=== PATIENT | female | born 1945 | race Caucasian/White ===

== ENCOUNTER 2025-09-24 20:27 | Inpatient (IN) | payer OTHER, SELFPAY ==
[2025-09-24] VITALS (7 sets, daily range): BP systolic 92–165; BP diastolic 46–116; BMI 25.5
[2025-09-24 13:05] LABS: Hematocrit 38.5 % (37.0-47.0); Hemoglobin 12.9 g/dL (12.0-16.0); Mean Corp Hgb Conc. 33.5 g/dL (33.0-37.0); Mean Corpuscular Volume 93.0 fL (81.0-99.0); Nucleated Red Blood Cells % 0 %; Platelet Count 223 10^3/uL (130-400); Red Cell Dist. Width 12.0 % (11.5-14.5)
[2025-09-24 13:21] LABS: COVID-19 Antigen Negative (Negative)
[2025-09-24 13:30] LABS: ALT (SGPT) 99 U/L (0-35); AST (SGOT) 199 U/L (14-36); Albumin 4.2 g/dl (3.5-5.0); Alkaline Phosphatase 252 U/L (38-126); Blood Urea Nitrogen 26 mg/dl (7-17); Calcium 9.3 mg/dl (8.4-10.2); Carbon Dioxide 25 mmol/L (22-30); Chloride 102 mmol/L (98-107); Glucose 167 mg/dl (70-99); Lipase 116 U/L (23-300); Potassium 3.9 mmol/L (3.5-5.1); Sodium 137 mmol/L (135-145); Total Protein 7.1 g/dl (6.3-8.2); eGFR 51.43
[2025-09-24] MEDS: OMNIPAQUE 50 ML PO (14:30)
--- NOTE | 2025-09-24 14:31 | ED.GENMED ---
History of Present Illness
<Daniel Hui MD, Resident - Last Filed: 09/24/25 19:11>
General
Chief Complaint: Abdominal Symptoms
Time Seen by Provider: 09/24/25 13:56
History of Present Illness
History of Present Illness:
79 yo F PMH pancreatic cancer s/p Whipple in 2011, HTN, and thyroid disorder presenting w epigastric pain radiating to the back with nausea/vomiting/diarrhea.
She takes ursodiol as a home med.
These symptoms have happenned in February 2025, and she was instructed by her surgeon to take xifaxan and lomotil, which helped resolve the prior episode. However, this time, she vomiting the pills and was insisted by her family to come to the ED.
she denies any new food, low grade fever at home.
she also fell in the bathroom, denies LOC or headstrike.
denies headache, chest pain, dyspnea, focal weakness/numbness.
no uri symptoms. no sick contacts
Past History
<Daniel Hui MD, Resident - Last Filed: 09/24/25 19:11>
Past History
ED Past Medical History: Hypercholesterolemia and Other (pancreatic cancer s/p whipple)
ED Past Surgical History: Other (whipple)
Review of Systems
<Daniel Hui MD, Resident - Last Filed: 09/24/25 19:11>
Review of Systems
Constitutional: Reports fever, fatigue and chills
EENT: Reports no symptoms
Respiratory: Reports no symptoms
Cardiac: Reports no symptoms
ABD/GI: Reports abdominal pain (epigastric radiates to the back)
: Reports no symptoms
Musculoskeletal: Reports no symptoms
Neurological: Reports dizzy (lightheadedness)
Phy Exam
<Daniel Hui MD, Resident - Last Filed: 09/24/25 19:11>
Physical Exam
Physical Exam:
VS: BP 115/58; HR 103; T 99.8; O2sat 97
General: appears uncomfortable
CV: no murmurs
Pulm: CTAB
GI: hypoactive bowel sounds, diffusely tender to palpation, no rebound tenderness
MSK: no lower extremity edema
Back: no CVA tenderness
Neuro: nonfocal
Sepsis
<Daniel Hui MD, Resident - Last Filed: 09/24/25 19:11>
Sepsis Screening
Sepsis Assessment: Sepsis Ruled Out
Sepsis Screen
Sepsis Screen: Sepsis Ruled Out
Date: 09/24/25
Time: 19:11
Course
<Daniel Hui MD, Resident - Last Filed: 09/24/25 19:11>
Orders/Labs/Results
Orders:
Orders
09/24/25 12:56
COVID-19 Antigen Urgent
Source: Nasal Swab
Complete Blood Count/With Diff Urgent
Comprehensive Metabolic Panel Urgent
Lipase Urgent
INF RAPID [Influenza A+B Rapid Molecular] Urgent
CHRISTIANE Source: Nasal Swab
Specimen Description:
Date Specimen was Collected: 09/24/25
Time Specimen was Collected: 12:44
09/24/25 14:23
CT Abd/pel W Iv And Oral Contr Urgent
Comment:
Reason For Exam: upper abd pain, h/o Whipple/pancreatic Ca
Iohexol [Omnipaque] See Protocol PO NOW STA
09/24/25 14:33
Lactated Ringers [Lr] 1,000 ml IV BOLUS
Morphine Sulfate 4 mg IV NOW STA
Ondansetron Injectable [Zofran] 4 mg IV NOW STA
09/24/25 14:34
Electrocardiogram (*1) Urgent
Reason for Study: Syncope
EKG- Treatment ONCE
09/24/25 14:39
Lactate Level [Lactic Acid] Urgent
Blood Culture Urgent
CHRISTIANE Source: Blood/Venous
Specimen Description:
09/24/25 15:24
Urinalysis Reflex To Culture Urgent
Date Specimen was Collected: 09/24/25
Time Specimen was Collected: 12:44
Urine Microscopic Reflex Cult Urgent
09/24/25 17:17
Lactated Ringers [Lr] 1,000 ml IV BOLUS
09/24/25 18:07
Lactate Level [Lactic Acid] Urgent
09/24/25 20:00
Piperacillin/Tazo 2.25 Gram [Zosyn] 2.25 grams in 50 ml IV Q8H
Abnormal Lab Results
09/24/25 09/24/25 09/24/25
12:56 14:39 15:24
RBC 4.14 L 10^6/uL
(4.20-5.40)
MCH 31.2 H pg
(27.0-31.0)
Absolute Neuts (auto) 9.7 H 10^3/uL
(1.4-6.5)
Absolute Lymphs (auto) 0.2 L 10^3/uL
(1.2-3.4)
Neutrophils % 95.5 H %
(42.2-75.2)
Lymphocytes % 1.8 L %
(20.5-51.1)
BUN 26 H mg/dl
(7-17)
Creatinine 1.1 H mg/dL
(0.6-1.0)
Glucose 167 H mg/dl
(70-99)
Lactic Acid 2.5 H mmol/L
(0.7-2.0)
Total Bilirubin 3.2 H mg/dl
(0.2-1.3)
AST 199 H U/L
(14-36)
ALT 99 H U/L
(0-35)
Alkaline Phosphatase 252 H U/L
(38-126)
Urine RBC 3-6 A /HPF
(0-2)
Urine Bacteria (Reflex) Few A
(Negative)
Urine Albumin (Reflex) 1+ A
(Neg - Trace)
09/24/25
18:07
RBC
MCH
Absolute Neuts (auto)
Absolute Lymphs (auto)
Neutrophils %
Lymphocytes %
BUN
Creatinine
Glucose
Lactic Acid 2.6 H mmol/L
(0.7-2.0)
Total Bilirubin
AST
ALT
Alkaline Phosphatase
Urine RBC
Urine Bacteria (Reflex)
Urine Albumin (Reflex)
09/24/25 12:56
09/24/25 12:56
Vital Signs
Initial and Last Documented VS:
Initial Vital Signs
Temp Pulse Resp BP Pulse Ox
99.8 F 103 20 115/58 97
09/24/25 12:38 09/24/25 12:38 09/24/25 12:38 09/24/25 12:38 09/24/25 12:38
Last Documented Vital Signs
Temp Pulse Resp BP Pulse Ox
99.8 F 103 20 142/54 95
09/24/25 12:38 09/24/25 12:38 09/24/25 12:38 09/24/25 16:00 09/24/25 18:15
<Tomas Branch, DO - Last Filed: 09/24/25 18:58>
Orders/Labs/Results
Orders:
Orders
09/24/25 12:56
COVID-19 Antigen Urgent
Source: Nasal Swab
Complete Blood Count/With Diff Urgent
Comprehensive Metabolic Panel Urgent
Lipase Urgent
INF RAPID [Influenza A+B Rapid Molecular] Urgent
CHRISTIANE Source: Nasal Swab
Specimen Description:
Date Specimen was Collected: 09/24/25
Time Specimen was Collected: 12:44
09/24/25 14:23
CT Abd/pel W Iv And Oral Contr Urgent
Comment:
Reason For Exam: upper abd pain, h/o Whipple/pancreatic Ca
Iohexol [Omnipaque] See Protocol PO NOW STA
09/24/25 14:33
Lactated Ringers [Lr] 1,000 ml IV BOLUS
Morphine Sulfate 4 mg IV NOW STA
Ondansetron Injectable [Zofran] 4 mg IV NOW STA
09/24/25 14:34
Electrocardiogram (*1) Urgent
Reason for Study: Syncope
EKG- Treatment ONCE
09/24/25 14:39
Lactate Level [Lactic Acid] Urgent
Blood Culture Urgent
CHRISTIANE Source: Blood/Venous
Specimen Description:
09/24/25 15:24
Urinalysis Reflex To Culture Urgent
Date Specimen was Collected: 09/24/25
Time Specimen was Collected: 12:44
Urine Microscopic Reflex Cult Urgent
09/24/25 17:17
Lactated Ringers [Lr] 1,000 ml IV BOLUS
09/24/25 18:07
Lactate Level [Lactic Acid] Urgent
09/24/25 20:00
Piperacillin/Tazo 2.25 Gram [Zosyn] 2.25 grams in 50 ml IV Q8H
Abnormal Lab Results
09/24/25 09/24/25 09/24/25
12:56 14:39 15:24
RBC 4.14 L 10^6/uL
(4.20-5.40)
MCH 31.2 H pg
(27.0-31.0)
Absolute Neuts (auto) 9.7 H 10^3/uL
(1.4-6.5)
Absolute Lymphs (auto) 0.2 L 10^3/uL
(1.2-3.4)
Neutrophils % 95.5 H %
(42.2-75.2)
Lymphocytes % 1.8 L %
(20.5-51.1)
BUN 26 H mg/dl
(7-17)
Creatinine 1.1 H mg/dL
(0.6-1.0)
Glucose 167 H mg/dl
(70-99)
Lactic Acid 2.5 H mmol/L
(0.7-2.0)
Total Bilirubin 3.2 H mg/dl
(0.2-1.3)
AST 199 H U/L
(14-36)
ALT 99 H U/L
(0-35)
Alkaline Phosphatase 252 H U/L
(38-126)
Urine RBC 3-6 A /HPF
(0-2)
Urine Bacteria (Reflex) Few A
(Negative)
Urine Albumin (Reflex) 1+ A
(Neg - Trace)
09/24/25
18:07
RBC
MCH
Absolute Neuts (auto)
Absolute Lymphs (auto)
Neutrophils %
Lymphocytes %
BUN
Creatinine
Glucose
Lactic Acid 2.6 H mmol/L
(0.7-2.0)
Total Bilirubin
AST
ALT
Alkaline Phosphatase
Urine RBC
Urine Bacteria (Reflex)
Urine Albumin (Reflex)
09/24/25 12:56
09/24/25 12:56
Vital Signs
Initial and Last Documented VS:
Initial Vital Signs
Temp Pulse Resp BP Pulse Ox
99.8 F 103 20 115/58 97
09/24/25 12:38 09/24/25 12:38 09/24/25 12:38 09/24/25 12:38 09/24/25 12:38
Last Documented Vital Signs
Temp Pulse Resp BP Pulse Ox
99.8 F 103 20 142/54 95
09/24/25 12:38 09/24/25 12:38 09/24/25 12:38 09/24/25 16:00 09/24/25 18:15
<Daniel Hui MD, Resident - Last Filed: 09/24/25 19:11>
MDM/Problems Addressed
Differential Diagnosis Includes:
cholangitis, choledocholithasis, SBO, ileus, ischemic olitis, mesenteric ischemia (acute vs acute on chronic), gastritis/gastroenteritis, malignancy recurrence
MDM/Problems Addressed:
79 yo M PMH pancreatic cancer s/p whipple in 2011
acute onset nausea/vomiting/diarrhea, unable to tolerate PO
no recent travel or sick contacts
hx of HLD -> could point to a brewing ischemic etiology
differential is broad, but currently reassured by no peritoneal signs; she also denies blood in stool or hematemesis
she reports experiencing a fall, but denies LOC/headstrike. she denies headache and is neurologically nonfocal, will do EKG
Plan:
- CBC, CMP
- UA
- lactate
- Blood cultures
- EKG
- CT A/P with IV and oral contrast
- 1L LR ordered
Update:
- patient reports minimal pain and nausea significantly improved. is asking to drink water
- lactate was 2.5 ->2.6
- additional 1L LR ordered
- Zosyn ordered 2.25g q8h (Cr 1.1, and 79 yo) - patient denies any known drug allergies
- CT A/P showed
IMPRESSION:
- Status post Whipple procedure.
- Nonobstructive circumferential wall thickening involving the gastrojejunostomy.
- 3 small cystic structures at the expected location of the pancreaticojejunostomy, with adjacent and surrounding mild soft tissue infiltration. This could represent a segment of small bowel with segmental stenoses and secondary inflammation.
However, other possible consideration may include small inflamed pseudocysts. Residual or recurrent cystic neoplasm cannot be entirely excluded.
- Right upper quadrant ovoid fluid structure could represent distention of a segment of the common bile duct, diverticulum, or possibly cystic duct remnant. The possibility of a biliary stricture cannot be entirely excluded, though felt to be less
likely given the presence of pneumobilia within the intrahepatic ductal elements. Abscess cannot be entirely excluded, though felt to be less likely.
- Mild diffuse edema in the jason hepatis.
- Nonspecific 7 mm lymph node at the level of the diaphragm posterior to the inferior vena cava. Cannot exclude small metastatic lymph node.
- Direct comparison with any prior examination is advised.
- No bowel structure. No obstructive uropathy. Minor diverticulosis without acute diverticulitis.
- Tiny foci of gas within urinary bladder. Likely iatrogenic, though clinical correlation recommended.
Dispo: will admit to hospitalist for duodenitis, pneumobilia
After discussion with Dr. Branch, patient is allowed to drink water, CLD is appropriate for now
<Daniel Hui MD, Resident - Last Filed: 09/24/25 19:11>
*Pulse Oximetry
SaO2: 97
Oxygen Mode of Delivery: Room air
Patient hypoxic: no
*Critical Care Note
Total Time (30-74mins, 75-104mins- exclusive of procedures): Not Applicable
ED Attending Note
<Daniel Hui MD, Resident - Last Filed: 09/24/25 19:11>
-
Portions of this chart may have been created with voice recognition software.� Occasional wrong word or��sound alike� substitutions may have occurred due to the inherent limitations of voice recognition software.
<Tomas Branch, DO - Last Filed: 09/24/25 18:58>
ED Attending Note
Patient seen and examined by attending physician: Yes
I performed a history and physical exam of patient and discussed management with resident, I reviewed resident's note and agree with documented findings and plan of care.: Yes
ED Attending Note:
Note:
CHIEF COMPLAINT(S)
Upper abdominal pain after eating.
HISTORY OF PRESENT ILLNESS
The patient is a 79-year-old female with a history of pancreatic cancer treated with a Whipple procedure in 2011. She reports experiencing upper abdominal pain that began last night after eating. She is mindful of her diet and does not believe the
pain is related to food poisoning as no one else became ill.
The patient has a history of episodes related to bile duct issues following her Whipple procedure, which included removal of the gallbladder, part of the pancreas, and bile duct. She has experienced episodes of 'sludge' in the common bile duct
previously, for which she has been prescribed Ciprofloxacin and Rifaximin. She was instructed to initiate Ciprofloxacin if symptoms arise due to concerns of potential biliary infection, as her previous surgeon indicated the urgency based on past
patient experiences.
The patient attempted to take her medications this morning but vomited shortly after, rendering them ineffective. Her last similar episode occurred in February and was resolved at home. She usually finds relief within several hours after taking her
medications and resting, but this time symptoms persisted.
Her abdomen is notably tender with moderate upper abdominal tenderness reported. There is no rebound tenderness or guarding noted. The lack of bowel sounds is concerning for possible obstruction.
PAST MEDICAL AND SURIGICAL HISTORY
The patient previously underwent a Whipple procedure for pancreatic cancer in 2011, which involved the removal of the gallbladder, half of the pancreas, part of the bile duct, and a portion of the small intestine.
CHRONIC MEDICAL CONDITIONS SIGNIFICANTLY AFFECTING CARE
The patient has a history of pancreatic cancer treated with a Whipple procedure.
MEDICATIONS
Currently prescribed Ciprofloxacin and Rifaximin for potential biliary issues but was unable to retain the medication due to vomiting.
REVIEW OF SYSTEMS
- Gastrointestinal: Reports of vomiting following medication ingestion, moderate upper abdominal pain, and tenderness. Distended abdomen with no bowel sounds noted.
PHYSICAL EXAM
General: Alert, no acute distress.
Skin: Warm, dry.
Head: Normocephalic, atraumatic.
Neck: Supple, trachea midline.
Eye, Ears, Nose, Mouth and Throat: Oral mucosa moist.
Cardiovascular: Normal peripheral perfusion, No edema.
Respiratory: Respirations are non-labored.
Gastrointestinal: Abdomen is slightly distended, no bowel sounds, moderate upper abdominal tenderness, no rebound tenderness, no guarding noted.
Back: Normal range of motion, Normal alignment.
Musculoskeletal: Normal range of motion, normal strength.
Neurological: Alert and oriented to person, place, time, and situation, No focal neurological deficit observed.
Psychiatric: Cooperative, appropriate mood & affect.
PLAN
The plan includes obtaining an abdominal CT scan to evaluate potential causes for her symptoms, such as biliary duct obstruction or bowel obstruction. Instructed patient to report any increase in pain or nausea.
DIFFERENTIAL DIAGNOSIS
The Differential Diagnosis includes, in no particular order and is not limited to:
1. Biliary tree obstruction
2. Biliary sludge
3. Intestinal obstruction
4. Pancreatitis
5. Gastric outlet obstruction
6. Peptic ulcer disease
7. Gastroenteritis
8. Medication side effects
9. Gastric or duodenal ulcer
10. Cholecystitis
Disposition:
SUMMARY OF ENCOUNTER
The patient is a 79-year-old female with a history of pancreatic cancer treated with a Whipple procedure, who presented with upper abdominal pain. Similar symptoms have occurred in the past but sometimes resolve without intervention. The patient was
assessed in the emergency department where labs and a CT scan were conducted. The CBC was grossly unremarkable, with 95% neutrophils. CMP showed a lactic acid level of 2.5 mmol/L, elevated AST, ALT, and alkaline phosphatase at 252 IU/L. The
urinalysis was grossly unremarkable. The CT scan demonstrated some soft tissue infiltration surrounding and adjacent to the pancreaticojejunostomy with small cystic structures, possibly indicating small bowel segmental stenosis with secondary
inflammation or small inflamed pseudocysts. The patient reported feeling symptomatically better. She was managed with intravenous fluids, remained hemodynamically stable, and improved symptomatically. Due to her new findings on the CT scan, she was
covered with a dose of antibiotics and was admitted for further management.
DISPOSITION
Admit.
ASSESSMENT
The assessment indicated the likelihood of a biliary obstruction or possible inflammation secondary to the patient�s post-Whipple anatomy. Potential concerns include small inflamed pseudocysts or segmental stenosis.
EMERGENCY TREATMENTS ADMINISTERED
One dose of antibiotics was administered to address potential inflammation or infectious processes indicated by CT findings.
PLAN
The plan includes admitting the patient for further management, keeping the patient on clear fluids, providing IV fluids, and monitoring her condition due to findings of soft tissue infiltration and cystic structures near the pancreaticojejunostomy.
INDEPENDENT REVIEW OF LABS AND INTERPRETATION OF TESTS
- My independent review of the CBC shows it is grossly unremarkable but with neutrophilia at 95%.
- My independent review of the CMP indicates elevated lactic acid at 2.5 mmol/L, and elevated AST, ALT, and alkaline phosphatase at 252 IU/L.
- My independent review of urinalysis confirms it is grossly unremarkable.
- My independent interpretation of the CT scan indicates soft tissue infiltration near the pancreaticojejunostomy with small cystic structures suggestive of possible small inflamed pseudocysts or segmental stenosis due to inflammation.
MEDICAL DECISION MAKING
-Complexity of Data Reviewed: Chronic conditions affecting care [history of pancreatic cancer, biliary duct issues, Whipple procedure] Differential Diagnosis: Biliary tree obstruction, Biliary sludge, Intestinal obstruction, Pancreatitis, Gastric
outlet obstruction, Peptic ulcer disease, Gastroenteritis, Medication side effects, Gastric or duodenal ulcer, Cholecystitis.
-Data:
- Category 1:
- Lab tests: CBC, CMP, urinalysis reviewed and independently interpreted.
- Radiology: CT scan independently interpreted.
-Risk:
- Due to the complexity and risk associated with the patients presenting complaint, history, and CT findings, admission and inpatient management were considered necessary.
Discharge Plan
Departure
Patient Disposition: Admit
Date of Disposition: 09/24/25
Time of Disposition: 19:10
Admit to: Telemetry
Presentation/result/management discussed w/ accepting MD/DO: Hospitalist
Condition: Fair
Discharge Problem:
Duodenitis, Pneumobilia
Referrals:
NONE,* [Family Provider, Internal Medicine]
Interventions
Interventions:
*General Assessment Last Done: 09/24/25 14:32
*Neglect/Abuse Screening Last Done: 09/24/25 12:38
*ED COVID-19 Vaccine History Last Done: 09/24/25 14:32
*ED Influenza Vaccine History Last Done: 09/24/25 14:32
[facility] Risk Assessment Tool Last Done: 09/24/25 14:32
*Risk Screen - Suicide (C-SSRS) Last Done: 09/24/25 12:38
IO-Lgapen-Emalxizzas Assessment Last Done: 09/24/25 14:32
Discharge Date and Time
Print Language: CHINESE
[2025-09-24] MEDS: MORPHINE SULFATE 4 MG IV (14:40)
[2025-09-24] MEDS: ZOFRAN 4 MG IV (14:41)
[2025-09-24] MEDS: LR 1000 IV ×3 (14:42→22:03)
[2025-09-24 15:37] LABS: Urine Character Clear (Clear)
[2025-09-24 15:52] LABS: Urine Squamous Cell 16-20 /LPF (Few)
[2025-09-24] MEDS: ZOSYN 50 IV (19:42)
--- NOTE | 2025-09-24 20:00 | HPS.HSE ---
Family Physician
-
Family Physician: * NONE
Chief Complaint
-
Abd Pain, N/V
History of Present Illness
Patient is a 79y F with PMH significant for pancreatic cancer s/p Whipple (2011) who presents to ED complaining of abdominal pain and N/V/D. Patient states that she developed a similar episode of abdominal pain with N/V a few years after her
initial surgery. She was seen by her Surgeon who advised that this was likely due to biliary sludge and she was treated with abx with improvement in her symptoms. She has since kept a supple of ciprofloxacin on hand which she takes at the first
sign of such symptoms. She reports that she has had 3-4 episodes since that time.
Patient notes that she had some epigastric discomfort and loose stools last PM. She initially felt that this was due to eating rich foods over the holidays.
This AM she had more significant pain and developed N/V. She took a first dose of Cipro; however, she had an episode of emesis immediately thereafter.
Patient presented to the ED for further evaluation and treatment.
Patient is visiting family in the area. She does not have a current list of her medications.
Medical History
Past Medical History
Past Medical History: Reports Other
Additional Past Medical History:
Pancreatic Cancer
Hypothyroidism
IBS
Past Surgical History: Reports Other
Additional Past Surgical History:
Whipple (2011)
T&A
GABRIELLE / BSO
Breast Reduction
L Thumb Surgery
Social History
Tobacco: Non-smoker
Alcohol: Occasional
Drug: None
Family History
Family History: Not pertinent
Allergies / Home Medications
Allergies reflects when Allergies were last updated in [employer].
Home Medications with original date entered in [employer]
Allergy/Medication List:
Allergies
Allergy/AdvReac Type Severity Reaction Status Date / Time
No Known Allergies Allergy Unverified 12/26/25 12:38
Home Medications
Unobtainable 09/24/25
If medication reconciliation has not been performed, why?: Medication List N/A
Review of Systems
-
History Source: Patient
A 12 point ROS was completed and negative except as noted: Yes
Constitutional: Reports Fatigue; Denies Fever or Chills
EENT: Denies Sore Throat
Respiratory: Denies Cough or Trouble Breathing
Cardiac: Denies Chest Pain or Palpitations
Abdomen/GI: Reports Abdominal Pain, Nausea, Vomiting and Diarrhea; Denies Bloody Stools or Black Stools
: Denies Dysuria or Frequency
Musculoskeletal: Denies Joint Pain or Edema
Neurological: Denies Dizzy or Headache
Psych: Denies Depression or Anxiety
Physical Exam
Vital Signs
Vital Signs
Temp Pulse Resp BP Pulse Ox
99.8 F 103 20 142/54 95
09/24/25 12:38 09/24/25 12:38 09/24/25 12:38 09/24/25 16:00 09/24/25 19:30
Physical Exam
General: Other (79y F in no acute distress.)
HEENT: Other (Dry MM.)
Respiratory: Clear; No Wheezes, Rales or Rhonchi
Cardiac: S1/S2 and Regular Rhythm; No Murmur
GI: Soft, Non Distended, Normal Bowel Sounds and Other (Pos epigastric tenderness without rebound. Pos BS.)
Musculoskeletal: No Clubbing, No Cyanosis and No Edema
Neuro: AO x 3
Laboratory Results
-
09/24/25 12:56
09/24/25 12:56
Laboratory Results
Lactic Acid 2.6 mmol/L (0.7-2.0) H 09/24/25 18:07
Total Bilirubin 3.2 mg/dl (0.2-1.3) H 09/24/25 12:56
AST 199 U/L (14-36) H 09/24/25 12:56
ALT 99 U/L (0-35) H 09/24/25 12:56
Alkaline Phosphatase 252 U/L (38-126) H 09/24/25 12:56
Lipase 116 U/L (23-300) 09/24/25 12:56
Impression/Plan
-
A/P: Patient is a 79y F with PMH significant for pancreatic cancer s/p Whipple (2011) who presents to ED complaining of abdominal pain and N/V/D.
Biliary Sepsis
s/p Whipple
History of Pancreatic Cancer
- Admit for further evaluation and treatment.
- Patient presents with GI symptoms and evidence of organ dysfunction in the form of elevated lactate and bilirubin.
- Imaging shows post-op changes from prior Whipple. Note 3 small cysts at pancreaticojejunostomy site and associated inflammation.
- Also note cystic structure in RUQ which likely represents dilated bile duct - ? stricture v sludge v other.
- IV abx with Zosyn for now.
- IVF / supportive care with pain control, antiemetics, etc.
- Continue usual ursodiol.
- GI evaluation for additional recommendations.
- Follow for clinical improvement.
Hypothyroidism
Pancreatic Insufficiency
IBS
- Reconcile other regular medications in AM and resume those that are appropriate.
DVT Prophylaxis: Lovenox
Code Status: Full
[2025-09-24] MEDS: URSO 500 MG PO (22:04)
[2025-09-25] MEDS: ZOSYN 50 IV ×4 (02:27→19:51)
[2025-09-25 06:00] VITALS: BMI 25.4
[2025-09-25 07:30] VITALS: BP 100/49
[2025-09-25 08:16] LABS: ALT (SGPT) 72 U/L (0-35); AST (SGOT) 90 U/L (14-36); Albumin 3.1 g/dl (3.5-5.0); Alkaline Phosphatase 137 U/L (38-126); Blood Urea Nitrogen 26 mg/dl (7-17); Calcium 8.4 mg/dl (8.4-10.2); Carbon Dioxide 28 mmol/L (22-30); Chloride 101 mmol/L (98-107); Estimated Creatinine Clearance 33 ml/min; Glucose 91 mg/dl (70-99); Potassium 3.8 mmol/L (3.5-5.1); Sodium 134 mmol/L (135-145); Total Protein 5.8 g/dl (6.3-8.2); eGFR 46.33
[2025-09-25 08:31] LABS: Hematocrit 31.1 % (37.0-47.0); Hemoglobin 10.4 g/dL (12.0-16.0); Mean Corp Hgb Conc. 33.4 g/dL (33.0-37.0); Mean Corpuscular Volume 93.1 fL (81.0-99.0); Platelet Count 152 10^3/uL (130-400); Red Cell Dist. Width 12.2 % (11.5-14.5)
[2025-09-25] MEDS: URSO 500 MG PO ×2 (08:34→19:51)
[2025-09-25] MEDS: PROTONIX 40 MG PO (08:34)
--- NOTE | 2025-09-25 09:48 | W.PN.HOSP.TC ---
Today's Communication/Plan
-
.
Assessment / Plan
Assessment / Plan
Physical Exam
General: Other (79y F in no acute distress.)
HEENT: no deformities.
Respiratory: Clear; No Wheezes, Rales or Rhonchi
Cardiac: S1/S2 and Regular Rhythm; No Murmur
GI: Soft, Non Distended, Normal Bowel Sounds , no tenderness.
Musculoskeletal: No Clubbing, No Cyanosis and No Edema
Neuro: AO x 3, non focal, followed commands
Psych: calm.
Patient is a 79y F with PMH significant for pancreatic cancer s/p Whipple (2011) who presents to ED complaining of abdominal pain and N/V/D.
Biliary Sepsis
s/p Whipple
History of Pancreatic Cancer
She reports feeling better. She is receiving IV fluid, IV antibiotics
She has had recurrent episodes in the past
Discussed with GI , Might need to transfer to tertiary care center, GI doctor will see the patient and decide
Appreciate GI, ID help
Added IV Zofran/IV Dilaudid as needed
Hypothyroidism
Pancreatic Insufficiency
IBS
- Reconcile other regular medications in AM and resume those that are appropriate.
Hyponatremia
Acute kidney injury, we do not know the baseline but seems rising creatinine
Lactic acidosis, resolved
DVT Prophylaxis: Lovenox
Code Status: Full
Total time spent to see the patient, examine the patient, review data and lab results, discuss treatment plan with patient, nursing staff around 55 minutes
Anticipated Discharge: > 48 hours
Subjective/Interval History
-
Date of Service: September 25, 2025
No chest pain
No sob
No fevers
Mild abdominal discomfort
Objective Data
-
Labs:
Laboratory Results
09/25/25
07:19
WBC 18.2 H
Hgb 10.4 L
Hct 31.1 L
Plt Count 152 D
Sodium 134 L
Potassium 3.8
Chloride 101
Carbon Dioxide 28
BUN 26 H
Creatinine 1.2 H
Glucose 91
Calcium 8.4
Total Bilirubin 4.2 H
AST 90 H
ALT 72 H
Alkaline Phosphatase 137 H
Vital Signs:
Vital Signs
Temp Pulse Resp BP Pulse Ox
97.6 F 73 16 100/49 93
09/25/25 07:30 09/25/25 07:30 09/25/25 07:30 09/25/25 07:30 09/25/25 07:30
--- NOTE | 2025-09-25 10:24 | CON.ID ---
Consultation
-
Date/Time Consultation Requested: 09/25/25 7:02
Date/Time Consultation Performed: 09/25/25 10:24
Requesting Provider: Dr Dillard
Performing Provider: Dr Mccray
Reason for Consultation: Sepsis
Chief Complaint / Past History
Chief Complaint
abdominal pain, nausea, vomiting
History of Present Illness
Ms Castro is a 79 year old female with history of pancreatic cancer s/p whipple 2011 who presented here last night for nausea, vomiting, diarrhea, epigastic pain, loose stools. She has a history of biliary sludge with similar symptoms 3-4 times which
resolve promptly with the ciprofloxacin. She has oral ciprofloxacin prescribed which she keeps on hand and starts at the first sign of symptoms. She took her first dose of the ciprofloxacin but have emesis right away and she presented to the ER
for assessment. She is visiting the area.
Since arrival here she has been afebrile, overall stable, wbc initially 10 today 18.2, hgb 10.4, plt 152,L shift was initially present not repeated, lactic acid initially 2.5 now resolved, cr 1.2 unkown baseline, t bili 4.2, d bili 3.3, ast peaked
at 199 now 90, alt 99 now 72, alk phos 252 now 137, ua no pyuria, covid ag negative, CT a/p with IV and oral contrast: 'Nonobstructive circumferential wall thickening involving the gastrojejunostomy.3 small cystic structures at the expected location
of the pancreaticojejunostomy, with adjacent and surrounding mild soft tissue infiltration. This could represent a segment of small bowel with segmental stenoses and secondary inflammation. However, other possible consideration may include small
inflamed pseudocysts. Residual or recurrent cystic neoplasm cannot be entirely excluded. Right upper quadrant ovoid fluid structure could represent distention of a segment of the common bile duct, diverticulum, or possibly cystic duct remnant. The
possibility of a biliary stricture cannot be entirely excluded, though felt to be less likely given the presence of pneumobilia within the intrahepatic ductal elements. Abscess cannot be entirely excluded, though felt to be less likely.'
Past History
Additional Past Medical History:
Pancreatic Cancer
Hypothyroidism
IBS
Additional Past Surgical History:
Whipple (2011)
T&A
GABRIELLE / BSO
Breast Reduction
L Thumb Surgery
Allergy History:
No Known Allergies Allergy (Unverified 09/24/25 12:38)
Medications Reviewed: Yes
Social History
Tobacco: Non-Smoker
Alcohol: Occasional
Drug: None
Family History
Family History: Not Pertinent
Review of Systems
Review of Systems
Constitutional: Reports Fatigue; Denies Fever or Chills
EENT: Denies Sore Throat
Respiratory: Denies Cough or Trouble Breathing
Cardiac: Denies Chest Pain or Palpitations
Abdomen/GI: Reports Abdominal Pain, Nausea, Vomiting and Diarrhea; Denies Bloody Stools or Black Stools
: Denies Dysuria or Frequency
Musculoskeletal: Denies Joint Pain or Edema
Neurological: Denies Dizzy or Headache
Psych: Denies Depression or Anxiety
Vital Signs
Temp Pulse Resp BP Pulse Ox
97.6 F 73 16 100/49 93
09/25/25 07:30 09/25/25 07:30 09/25/25 07:30 09/25/25 07:30 09/25/25 07:30
Physical Exam
Physical Exam
Constitutional: No Acute Distress
Cardiovascular: Regular Rate and S1/S2; Negative Murmur or Rub
Pulmonary: Clear and Symmetric; Negative Wheezes, Rales or Rhonchi
Gastrointestinal: Soft, Tender, Non Distended and Normal Bowel Sounds
Skin: Warm and Dry; Negative Rash or Jaundice
Lab / Diagnostic Study Results
09/25/25 07:19
09/25/25 07:19
Abs Immat Gran (auto) 0.0 10^3/uL (0-0.05) 09/24/25 12:56
Absolute Neuts (auto) 9.7 10^3/uL (1.4-6.5) H 09/24/25 12:56
Absolute Lymphs (auto) 0.2 10^3/uL (1.2-3.4) L 09/24/25 12:56
Absolute Monos (auto) 0.2 10^3/uL (0.1-0.6) 09/24/25 12:56
Absolute Basos (auto) 0.1 10^3/uL (0-0.2) 09/24/25 12:56
Immature Gran % 0.3 % (0-0.5) 09/24/25 12:56
Neutrophils % 95.5 % (42.2-75.2) H 09/24/25 12:56
Lymphocytes % 1.8 % (20.5-51.1) L 09/24/25 12:56
Monocytes % 1.9 % (1.7-9.3) 09/24/25 12:56
Eosinophils % 0.0 % (0-6) 09/24/25 12:56
Basophils % 0.5 % (0-2) 09/24/25 12:56
Lactic Acid Cancelled 09/25/25 03:07
Ur Squamous Epith Cells 16-20 /LPF (Few) 09/24/25 15:24
Microbiology Results
Micro:
09/24/25 14:39 Blood Culture - Pending
Blood/Venous
09/24/25 12:56 Influenza Types A & B (ADA) - Final
Nasal Swab Negative for Influenza A & B, NAAT
Negative results must be combined with clinical observations
and patient history.
Nucleic Acid Amplification test (NAAT)performed on the
[employer] platform.
Assessment / Plan
Cholangitis
Sepsis
h/o whipple 2012, pancreatic cancer
- blood cultures x2 send second set
- CT reviewed - inflamed pseudocysts vs small bowel; less likely biliary stricture/abscess - would like to discuss these findings with her GI in [place] to better understand if they are chronic or new findings, would plan to call them saturday
- continue zosyn for present - follow clinically
- she has consistently been using ciprofloxacin for about 4 infections in the last two years, would favor cycling through cipro, augmentin and bactrim with switch every 3-4 episodes rather than always using ciprofloxacin in an effort to avoid
developing resistance
- appreciate GI input
[2025-09-25] MEDS: TYLENOL 650 MG PO (10:40)
[2025-09-25] MEDS: LR 1000 IV (11:33)
[2025-09-25] MEDS: FLUSH (NSS) 1 FLUSH IV ×2 (11:34→14:33)
--- NOTE | 2025-09-25 12:13 | CM ---
Patient seen bedside w/ daughter, Celsa. Initial assessment completed. Patient is a 79y F with PMH significant for pancreatic cancer s/p Sergipple (2011) who presents to ED complaining of abdominal pain and N/V/D.
Patient and spouse visiting and staying w/ their daughter Celsa. Patient and spouse resides in [place]. Celsa is located in [place], [facility], 1 step to enter. Patient has bedroom on second floor of the home. Independent w/ ambulation,
no device required. Independent w/ ADLs and personal care. No SNF/HC hx.
PCP: Provider in [place]
Pharmacy: [facility] (while visiting)
Updated admissions to add patient's spouse as a contact as requested
Plan: Home w/ daughter when medically stable
--- NOTE | 2025-09-25 14:28 | CON.GI ---
Consultation
-
Date/Time Consultation Requested: 09/25/2025
Date/Time Consultation Performed: 09/25/2025
Requesting Provider: Hospitalist
Performing Provider: Kristal ROSS
Reason for Consultation: sepsis / elevated LFT
Medical History
Chief Complaint / HPI
Chief Complaint: Abdominal pain/nausea/vomiting
History of Present Illness:
79-year-old female who lives in [place] with prior history of pancreatic cancer status post Whipple's in 2011 admitted to ED with severe epigastric abdominal pain associated with nausea/vomiting/loose stool/chills. Temperature at home was
100.1 as per daughter. Patient has been following up with GI in [place] since her surgery and had few episodes of biliary sepsis requiring oral antibiotics. Last episode this summer. She was advised to carry ciprofloxacin by her GI. No
prior hospital admission.
Past Medical History
Past Medical History: Other (Pancreatic Cancer Hypothyroidism IBS)
Past Surgical History: Other (Whipple (2011) T&A GABRIELLE / BSO Breast Reduction L Thumb Surgery)
Social History
Alcohol: Occasional
Drug: None
Allergies / Home Medications
Allergy/AdvReac Type Severity Reaction Status Date / Time
No Known Allergies Allergy Unverified 09/24/25 12:38
�Medication �Instructions �Recorded
Unobtainable 09/24/25
Review of Systems
Vital Signs
Temp Pulse Resp BP Pulse Ox
97.6 F 73 16 100/49 93
09/25/25 07:30 09/25/25 07:30 09/25/25 07:30 09/25/25 07:30 09/25/25 07:30
Physical Exam
Exam
General: Comfortable
Respiratory: Clear
Cardiac: S1/S2
GI: Soft, Non Distended and Tender (Mild epigastric tenderness)
Neuro: AO x 3
Results
WBC 18.2 10^3/uL (4.8-10.8) H 09/25/25 07:19
Hgb 10.4 g/dL (12.0-16.0) L 09/25/25 07:19
Hct 31.1 % (37.0-47.0) L 09/25/25 07:19
MCV 93.1 fL (81.0-99.0) 09/25/25 07:19
Plt Count 152 10^3/uL (130-400) D 09/25/25 07:19
Absolute Neuts (auto) 9.7 10^3/uL (1.4-6.5) H 09/24/25 12:56
Sodium 134 mmol/L (135-145) L 09/25/25 07:19
Potassium 3.8 mmol/L (3.5-5.1) 09/25/25 07:19
Chloride 101 mmol/L (98-107) 09/25/25 07:19
Carbon Dioxide 28 mmol/L (22-30) 09/25/25 07:19
BUN 26 mg/dl (7-17) H 09/25/25 07:19
Creatinine 1.2 mg/dL (0.6-1.0) H 09/25/25 07:19
Calcium 8.4 mg/dl (8.4-10.2) 09/25/25 07:19
Total Bilirubin 4.2 mg/dl (0.2-1.3) H 09/25/25 07:19
AST 90 U/L (14-36) H 09/25/25 07:19
ALT 72 U/L (0-35) H 09/25/25 07:19
Alkaline Phosphatase 137 U/L (38-126) H 09/25/25 07:19
Lipase 116 U/L (23-300) 09/24/25 12:56
Diagnostic Image Results:
CT abd/pel 09/24/2025 with cont
IMPRESSION:
Status post Whipple procedure.
Nonobstructive circumferential wall thickening involving the gastrojejunostomy.
3 small cystic structures at the expected location of the pancreaticojejunostomy, with adjacent and surrounding mild soft tissue infiltration. This could represent a segment of small bowel with segmental stenoses and secondary inflammation. However,
other possible consideration may include small inflamed pseudocysts. Residual or recurrent cystic neoplasm cannot be entirely excluded.
Right upper quadrant ovoid fluid structure could represent distention of a segment of the common bile duct, diverticulum, or possibly cystic duct remnant. The possibility of a biliary stricture cannot be entirely excluded, though felt to be less
likely given the presence of pneumobilia within the intrahepatic ductal elements. Abscess cannot be entirely excluded, though felt to be less likely.
Mild diffuse edema in the jason hepatis.
Nonspecific 7 mm lymph node at the level of the diaphragm posterior to the inferior vena cava. Cannot exclude small metastatic lymph node.
Prior GI Procedures:
EGD: At outside facilities 5 years back.
Colonoscopy: At outside facility around 3 years back. No records available
Assessment / Plan
-
79-year-old female from [place] who has been visiting family for holidays with prior history of pancreatic cancer s/p Whipple 2011, recurrent biliary infection (requiring oral antibiotics in the past) admitted with abdominal
pain/nausea/vomiting/chills/diarrhea. On admission WBC was normal but this a.m. WBC 18.2.
This a.m. labs AST 90/ALT 72/alkaline phosphatase 137/total bilirubin 4.2/direct bilirubin 3.3. Lipase 116
CT abdomen/pelvis imaging showing post surgical anatomy.
3 small cystic structures at the expected location of the pancreaticojejunostomy, with adjacent and surrounding mild soft tissue infiltration. This could represent a segment of small bowel with segmental stenoses and secondary inflammation. However,
other possible consideration may include small inflamed pseudocysts. Residual or recurrent cystic neoplasm cannot be entirely excluded.
Right upper quadrant ovoid fluid structure could represent distention of a segment of the common bile duct, diverticulum, or possibly cystic duct remnant. The possibility of a biliary stricture cannot be entirely excluded, though felt to be less
likely given the presence of pneumobilia within the intrahepatic ductal elements. Abscess cannot be entirely excluded, though felt to be less likely.
--Abdominal pain/nausea/vomiting/diarrhea/chills
--Leukocytosis/elevated LFT
-- Biliary sepsis -recurrent.
--History of pancreatic cancer s/p Whipple 2011
plan
Patient with recurrent biliary sepsis. Previously treated by GI in [place] with oral antibiotics. No prior hospitalization. No prior records available. No prior imaging available to compare the current findings. Advised to provide
contact details for GI in [place] .
I had a long discussion with patient/patient's family at bedside discussing about possible transfer to [place] for further evaluation since patient had history of Whipple surgery with altered anatomy-patient may require biliary intervention with sepsis
(with altered anatomy ). Patient/patient's family would like to hold off on transfer for now. They would prefer to continue IV antibiotics here in . Discussed with hospitalist
Follow-up blood culture
Trend LFT
CLD
Continue IV antibiotics started by medical team for now
ID carlos a appreciated
Total Time Spent with Patient (in minutes): 55
-
-
Thank you for consultation and allowing me to participate in the patient's care. Please call the public opinion survey taker GI physician during the after hours with any questions or concerns.
[2025-09-25 15:22] VITALS: BP 106/49
[2025-09-25] MEDS: LOVENOX 40 MG SC (17:32)
[2025-09-25] MEDS: NEURONTIN 300 MG PO (17:34)
[2025-09-25 18:57] LABS: Hepatitis C Antibody Negative (Negative)
[2025-09-25 23:39] VITALS: BP 124/55
[2025-09-26] MEDS: LR 1000 IV ×2 (00:38→15:01)
[2025-09-26] MEDS: ZOSYN 50 IV ×4 (03:01→21:18)
[2025-09-26 08:23] LABS: Hematocrit 31.2 % (37.0-47.0); Hemoglobin 10.2 g/dL (12.0-16.0); Mean Corp Hgb Conc. 32.7 g/dL (33.0-37.0); Mean Corpuscular Volume 94.8 fL (81.0-99.0); Platelet Count 140 10^3/uL (130-400); Red Cell Dist. Width 12.7 % (11.5-14.5)
[2025-09-26] MEDS: URSO 500 MG PO ×2 (08:38→21:18)
[2025-09-26] MEDS: NEURONTIN 300 MG PO ×3 (08:38→21:18)
[2025-09-26] MEDS: PROTONIX 40 MG PO (08:39)
[2025-09-26 08:47] LABS: ALT (SGPT) 57 U/L (0-35); AST (SGOT) 57 U/L (14-36); Albumin 3.0 g/dl (3.5-5.0); Alkaline Phosphatase 156 U/L (38-126); Blood Urea Nitrogen 19 mg/dl (7-17); Calcium 8.6 mg/dl (8.4-10.2); Carbon Dioxide 25 mmol/L (22-30); Chloride 104 mmol/L (98-107); Estimated Creatinine Clearance 33 ml/min; Glucose 72 mg/dl (70-99); Potassium 3.8 mmol/L (3.5-5.1); Sodium 135 mmol/L (135-145); Total Protein 5.5 g/dl (6.3-8.2); eGFR 46.33
[2025-09-26 08:49] VITALS: BP 115/67
--- NOTE | 2025-09-26 09:11 | W.PN.HOSP.TC ---
Addendum entered and electronically signed by Laurel Dillard MD 09/26/25 12:35:
Addendum
Patient uses [employer] for thyroid dysfunction and vitamin B12. Will have to use her own pills as we do not carry that formula
End
Original Note:
Today's Communication/Plan
-
.
Assessment / Plan
Assessment / Plan
Physical Exam
General: Other (79y F in no acute distress.)
HEENT: no deformities.
Respiratory: Clear; No Wheezes, Rales or Rhonchi
Cardiac: S1/S2 and Regular Rhythm; No Murmur
GI: Soft, Non Distended, Normal Bowel Sounds ,mild upper tenderness.
Musculoskeletal: No Clubbing, No Cyanosis and No Edema
Neuro: AO x 3, non focal, followed commands
Psych: calm.
Patient is a 79y F with PMH significant for pancreatic cancer s/p Whipple (2011) who presents to ED complaining of abdominal pain and N/V/D.
Biliary Sepsis
s/p Whipple
History of Pancreatic Cancer
Same upper abdominal discomfort and fatigue but no nausea or worsening abdominal pain
No fever or chills
No chest pain
Tolerating liquid diet
WBC is normal now. LFT is improving
She is receiving IV fluid, IV antibiotics
Added IV Zofran/IV Dilaudid as needed
She has had recurrent episodes in the past and similarly treated with antibiotic.
Discussed with GI Dr, will treat with ABx for now and monitor closely.
Appreciate GI, ID help
Hypothyroidism
Pancreatic Insufficiency
IBS
Non specific neuropathy
Resumed Gabapentin
Hyponatremia, resolved
Acute kidney injury
Lactic acidosis, resolved
DVT Prophylaxis: Lovenox
Code Status: Full
Total time spent to see the patient, examine the patient, review data and lab results, discuss treatment plan with patient, daughter, GI doctor, nursing staff around 57 minutes
Anticipated Discharge: > 48 hours
Subjective/Interval History
-
Date of Service: September 26, 2025
Same upper abdominal discomfort and fatigue but no nausea or worsening abdominal pain
No fever or chills
No chest pain
Tolerating liquid diet
Objective Data
-
Labs:
Laboratory Results
09/26/25
07:08
WBC 9.1
Hgb 10.2 L
Hct 31.2 L
Plt Count 140
Sodium 135
Potassium 3.8
Chloride 104
Carbon Dioxide 25
BUN 19 H
Creatinine 1.2 H
Glucose 72
Calcium 8.6
Total Bilirubin 3.3 H
AST 57 H
ALT 57 H
Alkaline Phosphatase 156 H
Vital Signs:
Vital Signs
Temp Pulse Resp BP Pulse Ox
98.5 F 71 16 115/67 95
09/26/25 08:49 09/26/25 08:49 09/26/25 08:49 09/26/25 08:49 09/26/25 08:49
I&O
09/25/25 09/26/25 09/27/25
06:59 06:59 06:59
Intake Total 1610 / 1610
Balance 1610 / 1610
--- NOTE | 2025-09-26 12:42 | W.PN.GI.CBS2 ---
Today's Communication / Plan
-
Full liquid diet
IV antibiotics
Trend LFT
Assessment / Plan
-
79-year-old female from [place] who has been visiting family for holidays with prior history of pancreatic cancer s/p Whipple 2011, recurrent biliary infection (requiring oral antibiotics in the past) admitted with abdominal
pain/nausea/vomiting/chills/diarrhea. On admission WBC was normal but this a.m. WBC 18.2.
This a.m. labs AST 90/ALT 72/alkaline phosphatase 137/total bilirubin 4.2/direct bilirubin 3.3. Lipase 116
[address] abdomen/pelvis imaging showing post surgical anatomy.
3 small cystic structures at the expected location of the pancreaticojejunostomy, with adjacent and surrounding mild soft tissue infiltration. This could represent a segment of small bowel with segmental stenoses and secondary inflammation. However,
other possible consideration may include small inflamed pseudocysts. Residual or recurrent cystic neoplasm cannot be entirely excluded.
Right upper quadrant ovoid fluid structure could represent distention of a segment of the common bile duct, diverticulum, or possibly cystic duct remnant. The possibility of a biliary stricture cannot be entirely excluded, though felt to be less
likely given the presence of pneumobilia within the intrahepatic ductal elements. Abscess cannot be entirely excluded, though felt to be less likely.
--Abdominal pain/nausea/vomiting/diarrhea/chills
--Leukocytosis/elevated LFT
-- Biliary sepsis -recurrent.
--History of pancreatic cancer s/p Whipple 2011
plan
Clinically patient doing well. No fever. WBC normal now. Abdominal pain mild today. No nausea or vomiting. AST/ALT/total bilirubin trending down. Alkaline phosphatase mildly high. Blood culture negative�prelim
Patient with recurrent biliary sepsis. Previously treated by GI in [place] with oral antibiotics. No prior hospitalization. No prior records available. No prior imaging available to compare the current findings. Advised to provide
contact details for GI in [place] to call ( She was not able to communicate with her GI this week end ) .
I had a long discussion with patient/patient's family at bedside discussing about possible transfer to [place] for further evaluation since patient had history of Whipple surgery with altered anatomy-patient may require biliary intervention with sepsis
(with altered anatomy ). Patient/patient's family would like to hold off on transfer for now. They would prefer to continue IV antibiotics here in . Discussed with hospitalist
Trend LFT
Okay to advance to full liquid diet
ID eval reviewed. Continue antibiotics as per ID
Total Time Spent with Patient (in minutes): 35
Subjective
Subjective
Date of Service: September 26, 2025
Feeling better. No fever. Abdominal pain is better. Tolerating clear liquid diet
Objective
Data Reviewed
Laboratory Data:
Laboratory Results
09/26/25 07:08
09/26/25 07:08
Laboratory Results
Total Bilirubin 3.3 mg/dl (0.2-1.3) H 09/26/25 07:08
AST 57 U/L (14-36) H 09/26/25 07:08
ALT 57 U/L (0-35) H 09/26/25 07:08
Alkaline Phosphatase 156 U/L (38-126) H 09/26/25 07:08
Lipase 116 U/L (23-300) 09/24/25 12:56
Vital Signs and I&O:
Vital Signs
Temp Pulse Resp BP Pulse Ox
98.5 F 71 16 115/67 95
09/26/25 08:49 09/26/25 08:49 09/26/25 08:49 09/26/25 08:49 09/26/25 08:49
I&O
09/25/25 09/26/25 09/27/25
06:59 06:59 06:59
Intake Total 1610 / 1610
Balance 1610 / 1610
Physical Exam
Physical Exam
GI: Soft, Non Distended and Tender (Mild epigastric tenderness)
[2025-09-26 16:08] VITALS: BP 105/55
[2025-09-26] MEDS: LOVENOX 40 MG SC (17:12)
[2025-09-26 23:30] VITALS: BP 126/57
[2025-09-27] MEDS: ZOSYN 50 IV ×4 (03:08→19:37)
[2025-09-27 06:00] VITALS: BMI 25.3
[2025-09-27] MEDS: LR 1000 IV (06:19)
[2025-09-27] MEDS: URSO 500 MG PO ×2 (08:28→19:37)
[2025-09-27] MEDS: PROTONIX 40 MG PO (08:29)
[2025-09-27] MEDS: NON-FORMULARY ITEM 240 MG PO (08:29)
[2025-09-27] MEDS: NEURONTIN 300 MG PO ×3 (08:29→21:59)
[2025-09-27 08:52] VITALS: BP 131/55
[2025-09-27 08:54] LABS: ALT (SGPT) 48 U/L (0-35); AST (SGOT) 43 U/L (14-36); Albumin 3.4 g/dl (3.5-5.0); Alkaline Phosphatase 167 U/L (38-126); Blood Urea Nitrogen 14 mg/dl (7-17); Calcium 9.1 mg/dl (8.4-10.2); Carbon Dioxide 24 mmol/L (22-30); Chloride 106 mmol/L (98-107); Estimated Creatinine Clearance 36 ml/min; Glucose 90 mg/dl (70-99); Potassium 3.7 mmol/L (3.5-5.1); Sodium 137 mmol/L (135-145); Total Protein 6.2 g/dl (6.3-8.2); eGFR 51.43
[2025-09-27 09:04] LABS: Hematocrit 32.7 % (37.0-47.0); Hemoglobin 11.1 g/dL (12.0-16.0); Mean Corp Hgb Conc. 33.9 g/dL (33.0-37.0); Mean Corpuscular Volume 93.7 fL (81.0-99.0); Platelet Count 153 10^3/uL (130-400); Red Cell Dist. Width 12.6 % (11.5-14.5)
--- NOTE | 2025-09-27 12:17 | W.PN.ID1 ---
Date of Service
Date of Service: September 27, 2025
Today's Communication
awaiting MRI abdomen
continue zosyn
Assessment / Plan
Cholangitis
Sepsis
h/o whipple 2012, pancreatic cancer
- blood cultures x2 send second set
- MRI abdomen planned
- continue zosyn for present - follow clinically
- she has consistently been using ciprofloxacin for about 4 infections in the last two years, would favor cycling through cipro, augmentin and bactrim with switch every 3-4 episodes rather than always using ciprofloxacin in an effort to avoid
developing resistance
- appreciate GI input
Chief Complaint
-: Fever
Subjective / Review of Systems
afebrile
bp stable
tolerating current therapies
abdomen no longer tender
Vital Signs / Physical Exam
Vital Signs
Vital Signs
Temp Pulse Resp BP Pulse Ox
98.3 F 60 18 131/55 94
09/27/25 08:52 09/27/25 08:52 09/27/25 08:52 09/27/25 08:52 09/27/25 08:52
Physical Exam
Constitutional: No Acute Distress
Cardiovascular: Regular Rate and S1/S2; Negative Murmur or Rub
Pulmonary: Clear and Symmetric; Negative Wheezes or Rales
Gastrointestinal: Soft, Non Tender, Non Distended and Normal Bowel Sounds
Skin: Warm and Dry; Negative Rash or Jaundice
Objective Data
Lab Data
Lab Results
09/27/25 07:58
09/27/25 07:58
Estimated Creat Clear 36 ml/min 09/27/25 07:58
Lactic Acid Cancelled 09/25/25 03:07
Total Bilirubin 2.8 mg/dl (0.2-1.3) H 09/27/25 07:58
AST 43 U/L (14-36) H 09/27/25 07:58
ALT 48 U/L (0-35) H 09/27/25 07:58
Alkaline Phosphatase 167 U/L (38-126) H 09/27/25 07:58
Most recent labs reviewed.
Micro Results:
09/25/25 11:06 Blood Culture - Preliminary
Blood/Venous No Growth in 48 hours- Final report to follow
09/24/25 14:39 Blood Culture - Preliminary
Blood/Venous No Growth in 48 hours- Final report to follow
09/24/25 12:56 Influenza Types A & B (ADA) - Final
Nasal Swab Negative for Influenza A & B, NAAT
Negative results must be combined with clinical observations
and patient history.
Nucleic Acid Amplification test (NAAT)performed on the
[employer] platform.
Care Review
Plan reviewed with: Physician (Dr Allan - [facility])
--- NOTE | 2025-09-27 12:58 | W.PN.GI.CBS2 ---
Today's Communication / Plan
-
mri, abx, trend lfts
Assessment / Plan
-
79-year-old female from [place] who has been visiting family for holidays with prior history of pancreatic cancer s/p Whipple 2011, recurrent biliary infection (requiring oral antibiotics in the past) admitted with abdominal
pain/nausea/vomiting/chills/diarrhea. On admission WBC was normal but this a.m. WBC 18.2.
This a.m. labs AST 90/ALT 72/alkaline phosphatase 137/total bilirubin 4.2/direct bilirubin 3.3. Lipase 116
CT abdomen/pelvis imaging showing post surgical anatomy.
3 small cystic structures at the expected location of the pancreaticojejunostomy, with adjacent and surrounding mild soft tissue infiltration. This could represent a segment of small bowel with segmental stenoses and secondary inflammation. However,
other possible consideration may include small inflamed pseudocysts. Residual or recurrent cystic neoplasm cannot be entirely excluded.
Right upper quadrant ovoid fluid structure could represent distention of a segment of the common bile duct, diverticulum, or possibly cystic duct remnant. The possibility of a biliary stricture cannot be entirely excluded, though felt to be less
likely given the presence of pneumobilia within the intrahepatic ductal elements. Abscess cannot be entirely excluded, though felt to be less likely.
--Abdominal pain/nausea/vomiting/diarrhea/chills
--Leukocytosis/elevated LFT
-- Biliary sepsis -recurrent.
--History of pancreatic cancer s/p Whipple 2011
Recommendations:
Clinically patient doing well. No fever. WBC normal now. Abdominal pain improved. No nausea or vomiting. AST/ALT/total bilirubin trending down. Alkaline phosphatase mildly high. Blood culture negative�prelim
Patient with recurrent biliary sepsis. Previously treated by GI in [place] with oral antibiotics. No prior hospitalization. No prior records available. I called and s/w her prior GI Dr. Bridger Oconnor in [place].
He was unaware of her recurrent biliary sepsis. She was followed with another GI previously who is advanced endoscopy who has since retired. On discussion with Dr. Oconnor, he recommended that we complete the workup here. I discussed with the
patient and daughter a second time and reviewed his recommendation to continue workup here. Ideally, if any procedures needed they preferred to do this in [place] but I recommend that they least get the MRI for further evaluation given her
CT findings as above. We can also ensure that the bilirubin continues to trend down. I also advance her diet to low-fat diet and we will sure she is able to tolerate it. We will review with Dr. Johnson our biliary endoscopist the MRI tomorrow. I
have asked Dr. Johnson to see her in the morning. I made the patient n.p.o. after midnight in case procedure is necessary tomorrow. I have also discussed with infectious disease. Continue IV antibiotics for now and on discharge if no intervention is
necessary, they will recommend oral antibiotics.
Total Time Spent with Patient (in minutes): 50
Subjective
Subjective
Date of Service: September 27, 2025
Patient feels improved, no abdominal pain, no fevers or chills.
Objective
Data Reviewed
Laboratory Data:
Laboratory Results
09/27/25 07:58
09/27/25 07:58
Laboratory Results
Total Bilirubin 2.8 mg/dl (0.2-1.3) H 09/27/25 07:58
AST 43 U/L (14-36) H 09/27/25 07:58
ALT 48 U/L (0-35) H 09/27/25 07:58
Alkaline Phosphatase 167 U/L (38-126) H 09/27/25 07:58
Lipase 116 U/L (23-300) 09/24/25 12:56
Vital Signs and I&O:
Vital Signs
Temp Pulse Resp BP Pulse Ox
98.3 F 60 18 131/55 94
09/27/25 08:52 09/27/25 08:52 09/27/25 08:52 09/27/25 08:52 09/27/25 08:52
I&O
09/26/25 09/27/25 09/28/25
06:59 06:59 06:59
Intake Total 1610 / 1610 1580 / 1580
Balance 1610 / 1610 1580 / 1580
Physical Exam
Physical Exam
GI: Non Distended and Non Tender
--- NOTE | 2025-09-27 14:53 | CM ---
Chart reviewed. Care ongoing
Cont IV abx, can transition to oral at discharge if no intervention is necessary
NPO per GI if procedure tomorrow
Plan: Home w/ daughter when stable
[2025-09-27] MEDS: LR IV (15:09)
--- NOTE | 2025-09-27 16:24 | W.PN.HOSP.TC ---
Today's Communication/Plan
-
Assessment / Plan
Assessment / Plan
Physical Exam
General: Other (79y F in no acute distress.)
HEENT: no deformities.
Respiratory: Clear; No Wheezes, Rales or Rhonchi
Cardiac: S1/S2 and Regular Rhythm; No Murmur
GI: Soft, Non Distended, Normal Bowel Sounds ,mild upper tenderness.
Musculoskeletal: No Clubbing, No Cyanosis and No Edema
Neuro: AO x 3, non focal, followed commands
Psych: calm.
Patient is a 79y F with PMH significant for pancreatic cancer s/p Whipple (2011) who presents to ED complaining of abdominal pain and N/V/D.
Biliary Sepsis
s/p Whipple
History of Pancreatic Cancer
- Resolving abdominal pain
- No fever or chills, leukocytosis resolved
- Continuing antibiotics with Zosyn for now, appreciate ID guidance especially considering recurrence of biliary sepsis
- GI following, MRCP pending, GI discussed with patient's primary enamel sprayer in [place] (Dr. Bridger Oconnor) who agreed with workup at this institution for now
- Tolerating low-fat diet
- LFTs abnormal but stable, will monitor
Hypothyroidism
Pancreatic Insufficiency
IBS
Non specific neuropathy
Resumed Gabapentin
Hyponatremia, resolved
Acute kidney injury-renal function appears stable with creatinine at around 1.1, will monitor
Lactic acidosis, resolved
DVT Prophylaxis: Lovenox
Code Status: Full
Anticipated Discharge: 24 - 48 hours
Subjective/Interval History
-
Date of Service: September 27, 2025
Patient was seen and examined at bedside this morning. Remains on antibiotic coverage with Zosyn. Clinically stable currently. Pending MRCP today.
Objective Data
-
Labs:
Laboratory Results
09/27/25
07:58
WBC 6.1
Hgb 11.1 L
Hct 32.7 L
Plt Count 153
Sodium 137
Potassium 3.7
Chloride 106
Carbon Dioxide 24
BUN 14
Creatinine 1.1 H
Glucose 90
Calcium 9.1
Total Bilirubin 2.8 H
AST 43 H
ALT 48 H
Alkaline Phosphatase 167 H
Vital Signs:
Vital Signs
Temp Pulse Resp BP Pulse Ox
98.3 F 60 18 131/55 94
09/27/25 08:52 09/27/25 08:52 09/27/25 08:52 09/27/25 08:52 09/27/25 08:52
I&O
09/26/25 09/27/25 09/28/25
06:59 06:59 06:59
Intake Total 1610 / 1610 1580 / 1580
Balance 1610 / 1610 1580 / 1580
Review of Systems
-
History Source: Patient
All other systems: Reviewed and negative
Physical Exam
-
General: No Apparent Distress
[2025-09-27] MEDS: ZENPEP DELAYED RELEASE CAPSULE 1 CAPSULE PO ×2 (17:29→21:59)
[2025-09-27] MEDS: LOVENOX 40 MG SC (17:29)
[2025-09-27 20:00] VITALS: BP 129/55
[2025-09-27 23:30] VITALS: BP 138/66
[2025-09-28] MEDS: ZOSYN 50 IV ×2 (02:52→08:09)
[2025-09-28 06:00] VITALS: BMI 25.1
[2025-09-28 07:00] VITALS: BP 140/59
[2025-09-28] MEDS: URSO 500 MG PO (08:09)
[2025-09-28] MEDS: PROTONIX 40 MG PO (08:09)
[2025-09-28] MEDS: VITAMIN B-12 1000 MCG PO (08:09)
[2025-09-28] MEDS: NEURONTIN 300 MG PO ×2 (08:09→15:21)
[2025-09-28] MEDS: NON-FORMULARY ITEM 240 MG PO (08:10)
[2025-09-28] MEDS: ZENPEP DELAYED RELEASE CAPSULE PO (08:13)
[2025-09-28 08:42] LABS: Hematocrit 31.7 % (37.0-47.0); Hemoglobin 10.5 g/dL (12.0-16.0); Mean Corp Hgb Conc. 33.1 g/dL (33.0-37.0); Mean Corpuscular Volume 93.0 fL (81.0-99.0); Nucleated Red Blood Cells % 0 %; Platelet Count 153 10^3/uL (130-400); Red Cell Dist. Width 12.7 % (11.5-14.5)
[2025-09-28 09:31] LABS: ALT (SGPT) 39 U/L (0-35); AST (SGOT) 33 U/L (14-36); Albumin 3.2 g/dl (3.5-5.0); Alkaline Phosphatase 166 U/L (38-126); Blood Urea Nitrogen 15 mg/dl (7-17); Calcium 8.9 mg/dl (8.4-10.2); Carbon Dioxide 26 mmol/L (22-30); Chloride 105 mmol/L (98-107); Estimated Creatinine Clearance 35 ml/min; Glucose 104 mg/dl (70-99); Potassium 3.7 mmol/L (3.5-5.1); Sodium 137 mmol/L (135-145); Total Protein 5.9 g/dl (6.3-8.2); eGFR 51.11
--- NOTE | 2025-09-28 11:06 | W.PN.ID1 ---
Date of Service
Date of Service: September 28, 2025
Today's Communication
- start augmentin for a 10 day total course through 11/03
Assessment / Plan
Cholangitis
Sepsis
h/o whipple 2012, pancreatic cancer
- blood cultures x2 send second set
- MRI abdomen suggestive of cholangitis with pneumobilia, also with moderate circumferentail wall thickening of the gastric antrum
- start augmentin for a 10 day total course through 11/03
- she has consistently been using ciprofloxacin for about 4 infections in the last two years, would favor cycling through cipro, augmentin and bactrim with switch every 3-4 episodes rather than always using ciprofloxacin in an effort to avoid
developing resistance
- follow up with GI
Chief Complaint
-: Fever
Subjective / Review of Systems
afebrile
bp stable
abdominal pain resolved
no new complaints
Vital Signs / Physical Exam
Vital Signs
Vital Signs
Temp Pulse Resp BP Pulse Ox
98.6 F 64 16 140/59 94
09/28/25 07:00 09/28/25 07:00 09/28/25 07:00 09/28/25 07:00 09/28/25 07:00
Physical Exam
Constitutional: No Acute Distress
Cardiovascular: Regular Rate and S1/S2; Negative Murmur or Rub
Pulmonary: Clear and Symmetric; Negative Wheezes or Rales
Gastrointestinal: Soft, Non Tender, Non Distended and Normal Bowel Sounds
Skin: Warm and Dry; Negative Rash or Jaundice
Objective Data
Lab Data
Lab Results
09/28/25 08:20
09/28/25 08:20
Estimated Creat Clear 35 ml/min 09/28/25 08:20
Lactic Acid Cancelled 09/25/25 03:07
Total Bilirubin 1.8 mg/dl (0.2-1.3) H D 09/28/25 08:20
AST 33 U/L (14-36) 09/28/25 08:20
ALT 39 U/L (0-35) H 09/28/25 08:20
Alkaline Phosphatase 166 U/L (38-126) H 09/28/25 08:20
Most recent labs reviewed.
Micro Results:
09/24/25 14:39 Blood Culture - Preliminary
Blood/Venous No Growth in 72 hours- Final report to follow
09/25/25 11:06 Blood Culture - Preliminary
Blood/Venous No Growth in 48 hours- Final report to follow
09/24/25 12:56 Influenza Types A & B (ADA) - Final
Nasal Swab Negative for Influenza A & B, NAAT
Negative results must be combined with clinical observations
and patient history.
Nucleic Acid Amplification test (NAAT)performed on the
[employer] platform.
MRI: Report Reviewed (1. Severe pneumobilia in the intrahepatic bile ducts and common hepatic duct with moderate biliary dilatation. 2. Residual gallbladder or distended cystic duct remnant in the right upper quadrant containing an air-fluid
level. 3. Previous Whipple surgery (pancreatic head resection with pancrea)
--- NOTE | 2025-09-28 11:09 | CM ---
CM reviewed chart, patient seen bedside with , for d/c today.
Patient denies needs. IMM verbally reviewed, provided with copy, placed in chart.
CM will continue to follow for all d/c needs.
Plan; home no needs
[2025-09-28] MEDS: AUGMENTIN 875 MG/125 MG 1 TABLET PO (11:28)
[2025-09-28] MEDS: ZENPEP DELAYED RELEASE CAPSULE 1 CAPSULE PO (11:28)
--- NOTE | 2025-09-28 11:51 | W.PN.GI.CBS2 ---
Today's Communication / Plan
-
ok to d/c
Assessment / Plan
-
79-year-old female from [place] who has been visiting family for holidays with prior history of pancreatic cancer s/p Whipple 2011, recurrent biliary infection (requiring oral antibiotics in the past) admitted with abdominal
pain/nausea/vomiting/chills/diarrhea. On admission WBC was normal but this a.m. WBC 18.2.
This a.m. labs AST 90/ALT 72/alkaline phosphatase 137/total bilirubin 4.2/direct bilirubin 3.3. Lipase 116
CT abdomen/pelvis imaging showing post surgical anatomy.
3 small cystic structures at the expected location of the pancreaticojejunostomy, with adjacent and surrounding mild soft tissue infiltration. This could represent a segment of small bowel with segmental stenoses and secondary inflammation. However,
other possible consideration may include small inflamed pseudocysts. Residual or recurrent cystic neoplasm cannot be entirely excluded.
Right upper quadrant ovoid fluid structure could represent distention of a segment of the common bile duct, diverticulum, or possibly cystic duct remnant. The possibility of a biliary stricture cannot be entirely excluded, though felt to be less
likely given the presence of pneumobilia within the intrahepatic ductal elements. Abscess cannot be entirely excluded, though felt to be less likely.
Had detailed discussion w/ pt re: mx plan. 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 This is 3rd such episode. She was treated w/ abx alone during previous episodes. Never had
endoscopic procedure (ERCP) for evaluation/intervention. I discussed the need for ERCP to come to dx and intervention. Re: the timing of the procedure, recommended to get it done soon, hopefully within next few weeks. She is responding to abx
alone and her LFT is improving on its own, thus ERCP can be deferred as elective procedure, as long as she has f/u within next few weeks. She ensured me that she does. Ok for d/c home so she can return to [place] and resume her care there. GI s/o.
Total Time Spent with Patient (in minutes): 35
Subjective
Subjective
Date of Service: September 28, 2025
no events o/n
Objective
Data Reviewed
Laboratory Data:
Laboratory Results
09/28/25 08:20
09/28/25 08:20
Laboratory Results
Total Bilirubin 1.8 mg/dl (0.2-1.3) H D 09/28/25 08:20
AST 33 U/L (14-36) 09/28/25 08:20
ALT 39 U/L (0-35) H 09/28/25 08:20
Alkaline Phosphatase 166 U/L (38-126) H 09/28/25 08:20
Lipase 116 U/L (23-300) 09/24/25 12:56
Vital Signs and I&O:
Vital Signs
Temp Pulse Resp BP Pulse Ox
98.6 F 64 16 140/59 94
09/28/25 07:00 09/28/25 07:00 09/28/25 07:00 09/28/25 07:00 09/28/25 07:00
I&O
09/27/25 09/28/25 09/29/25
06:59 06:59 06:59
Intake Total 1580 / 1580 1020 / 1020
Balance 1580 / 1580 1020 / 1020
--- NOTE | 2025-09-28 14:53 | W.DCSUMMARY ---
Discharge Summary
Discharge Data
Date of Admission: 09/24/25
Date of Discharge: 09/28/25
Total time spent discharging patient (in min): 48
-
Pending Results: No
Hospital Course
Ms. Castro is a 80-year-old female with a medical history of pancreatic cancer (status post Whipple 2011) and recurrent cholangitis who presented with abdominal pain with nausea/vomiting/diarrhea. She was admitted for treatment of sepsis secondary to
recurrent cholangitis. She was initially treated with Zosyn with significant improvement. She was monitored closely by the infectious disease team. She has now been transitioned to Augmentin which she will continue through 10/03/2025. She was
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 After discussion between the gastroenterology team and the patient's primary foley artist [place] (Dr. Bridger Oconnor) and also considering
her clinical improvement, no urgent intervention was indicated. She will be continued on antibiotics and will need to follow-up closely with her primary foley artist for further evaluation and management. Her LFTs were initially abnormal but
have improved throughout her hospitalization. She was medically stable at time of hospital discharge.
General: No Apparent Distress, Comfortable and Conversant
HEENT: NormoCephalic, Moist mucous membranes, Atraumatic
Respiratory: Clear and Non Labored Respirations
Cardiac: S1/S2 and Regular Rhythm; No Rub or Gallop
GI: Soft, Non Tender, Non Distended and Normal Bowel Sounds
Musculoskeletal: No Edema, no deformity
: NO Chavez
Neuro: Awake, Alert, Nonfocal/grossly intact
Psych: Calm and Intact Judgment/Insight
Discharge Plan
-
Patient Disposition: Home (Routine Discharge)
Discharge Diagnosis/Procedures: Sepsis secondary to cholangitis
Blood Work: Liver function testing with PCP in 5 days
Activity Restrictions/Additional Instructions:
You were admitted for treatment of sepsis due to a biliary infection. You improved with antibiotics, and have now been transitioned to oral antibiotics to continue through 10/03/2025. You were monitored closely by the infectious disease team and the
gastroenterology team. Imaging of your abdomen showed postsurgical changes related to your Whipple's procedure and possible stricture of the duct that drains bile from your liver, which could be causing your recurrent infections. It is important
to follow-up closely with your primary foley artist after hospital discharge for further evaluation and intervention if needed. At the time of hospital discharge you were medically stable. Also happy birthday.
Referrals:
NONE,* [Family Provider, Internal Medicine]
Prescriptions:
New
cyanocobalamin (vitamin B-12) 500 mcg Tablet
1,000 mcg PO DAILY Qty: 30 0RF
amoxicillin-pot clavulanate 875-125 mg Tablet
1 tab PO Q12 5 Days Qty: 10 0RF
Zenpep 10,000-32,000 -42,000 unit Capsule,Delayed Release(Dr/Ec)
1 cap PO ACHS Qty: 90 0RF
Continued
gabapentin 300 mg Capsule
300 mg PO TID
Rx Instructions:
2-3 times/day
thyroid (pork) [INTERNET RETAILER Thyroid] 120 mg Tablet
240 mg PO DAILY
Vitamin B-12 5,000 mcg capsule
5,000 mcg PO BID
Discharge Orders:
Discharge Patient (As Directed); Ordered 09/28/25
Ordered By: Chon Logan
Discharge Date and Time
Print Language: GREEK
[2025-09-28 15:00] VITALS: BP 134/69
== END 2025-09-28 16:47 | disposition home or self-care (01) | DRG 871 ==
LOC: 4 WEST ACU 20:27
PROVIDERS: Emergency Medicine; Internal Medicine; ADMITTING PHYSICIAN Hospitalist; ATTENDING PHYSICIAN Internal Medicine; CONSULT PHYSICIAN Internal Medicine Gastroenterology; CONSULT PHYSICIAN Student in an Organized Health Care Education/Training Program; EMERGENCY PHYSICIAN Emergency Medicine
DX: A41.9 Sepsis, unspecified organism (principal); K83.1 Obstruction of bile duct; E87.20 Acidosis, unspecified; K83.09 Other cholangitis; E87.1 Hypo-osmolality and hyponatremia; N17.9 Acute kidney failure, unspecified; R17 Unspecified jaundice; I10 Essential (primary) hypertension; E78.00 Pure hypercholesterolemia, unspecified; R65.20 Severe sepsis without septic shock; K29.80 Duodenitis without bleeding; G62.9 Polyneuropathy, unspecified; E03.9 Hypothyroidism, unspecified; K58.9 Irritable bowel syndrome, unspecified; Z90.411 Acquired partial absence of pancreas; Z85.07 Personal history of malignant neoplasm of pancreas; Z11.52 Encounter for screening for COVID-19
CPT/HCPCS: 74177; 74183; 80053; 81003; 81015; 82248; 83605; 83690; 85025; 85027; 86803; 87040; 87502; 87811; 93005; 96361; 96365; 96375; 99285; A9575; Q9967